=== PATIENT | female | born 1980 ===

== ENCOUNTER → 2018-01-06 21:21 | Outpatient (REF) | payer OTHER, SELFPAY ==
[2018-01-06 21:40] LABS: Hemoglobin 13.4 g/dL (12.0-16.0); Mean Corpuscular HGB Conc 33.4 % (30-36); Mean Corpuscular Volume 92.8 fL (80-100); Platelet Count 323 X10^3/uL (150-400); Red Blood Cell Count 4.31 X10^6/uL (4.0-5.2); Red Cell Distribution Width 14.5 % (11.6-14.8); White Blood Cell Count 9.6 X10^3/uL (4.5-11.0)
[2018-01-06 21:41] LABS: Alanine Aminotransferase 29 IU/L (9-52); Albumin 4.9 g/dL (3.5-5.0); Albumin Globulin Ratio 1.9 (1.0-2.8); Alkaline Phosphatase 47 U/L (38-126); Aspartate Aminotransferase 26 IU/L (14-36); BUN Creatinine Ratio 21.1 (6-22); Bilirubin Total 0.5 mg/dL (0.2-1.3); Blood Urea Nitrogen 19 mg/dL (7-17); Carbon Dioxide 30 mmol/L (22-32); Chloride 96 mmol/L (98-107); Estimated Glomerular Filt Rate > 60.0 mL/min (>60); Globulin 2.6 g/dL (1.7-4.1); Glucose 97 mg/dL (70-100); Magnesium 1.9 mg/dL (1.6-2.3); Potassium 4.7 mmol/L (3.4-5.1); Sodium 140 mmol/L (137-145); Total Protein 7.5 g/dL (6.3-8.2)
[2018-01-06 21:45] LABS: Add Manual Diff / Slide Review YES
[2018-01-06 21:46] LABS: HEMOLYSIS 52 (0-50)
[2018-01-06 22:07] LABS: Neutrophils Absolute Manual 8256 /uL (3000-5900); Total Cells Counted 100
[2018-01-06 22:08] LABS: RBC Morphology Normal Morphology
== END ==
LOC: LAB 21:21
PROVIDERS: Visit Provider Physician Assistant
DX: J45.50 Severe persistent asthma, uncomplicated (principal); Z79.52 Long term (current) use of systemic steroids; R60.1 Generalized edema; R73.03 Prediabetes
CPT/HCPCS: 80053; 83735; 85025

== ENCOUNTER → 2018-01-13 21:23 | Outpatient (REF) | payer OTHER, SELFPAY ==
[2018-01-13 21:35] LABS: Add Manual Diff / Slide Review NO; Basophils Percent Auto 0.5 % (0-2); Eosinophils Percent Auto 0.5 % (2-4); Hematocrit 37.7 % (36-46); Hemoglobin 12.7 g/dL (12.0-16.0); Lymphocytes Percent Auto 13.3 % (25-40); Mean Corpuscular HGB Conc 33.8 % (30-36); Mean Corpuscular Hemoglobin 31.4 PG (26-34); Neutrophils Absolute Auto 7500 /uL (3000-5900); Neutrophils Percent Auto 81.7 % (50-75); Platelet Count 323 X10^3/uL (150-400); Red Blood Cell Count 4.06 X10^6/uL (4.0-5.2); Red Cell Distribution Width 14.1 % (11.6-14.8); White Blood Cell Count 9.2 X10^3/uL (4.5-11.0)
[2018-01-13 21:42] LABS: Alanine Aminotransferase 28 IU/L (9-52); Albumin 4.7 g/dL (3.5-5.0); Alkaline Phosphatase 49 U/L (38-126); Aspartate Aminotransferase 20 IU/L (14-36); BUN Creatinine Ratio 21.1 (6-22); Bilirubin Total 0.3 mg/dL (0.2-1.3); Blood Urea Nitrogen 19 mg/dL (7-17); Calcium 9.9 mg/dL (8.4-10.2); Carbon Dioxide 32 mmol/L (22-32); Chloride 99 mmol/L (98-107); Estimated Glomerular Filt Rate > 60.0 mL/min (>60); Globulin 2.3 g/dL (1.7-4.1); Glucose 87 mg/dL (70-100); HEMOLYSIS < 15 (0-50); Magnesium 1.9 mg/dL (1.6-2.3); Sodium 142 mmol/L (137-145)
[2018-01-13 21:58] LABS: B Type Natriuretic Peptide < 100.0 (<100)
== END ==
LOC: LAB 21:23
PROVIDERS: Visit Provider Physician Assistant
DX: J45.50 Severe persistent asthma, uncomplicated (principal); Z79.52 Long term (current) use of systemic steroids; R60.1 Generalized edema; R73.03 Prediabetes; R07.9 Chest pain, unspecified
CPT/HCPCS: 80053; 83735; 83880; 85025

== ENCOUNTER → 2018-01-25 21:52 | Outpatient (REF) | payer OTHER, SELFPAY ==
[2018-01-25 22:42] LABS: Add Manual Diff / Slide Review NO; Basophils Percent Auto 0.2 % (0-2); Hemoglobin 13.1 g/dL (12.0-16.0); Lymphocytes Percent Auto 5.1 % (25-40); Mean Corpuscular HGB Conc 33.5 % (30-36); Mean Corpuscular Hemoglobin 30.9 PG (26-34); Monocytes Percent Auto 1.6 % (3-14); Neutrophils Absolute Auto 10700 /uL (3000-5900); Neutrophils Percent Auto 93.1 % (50-75); Platelet Count 340 X10^3/uL (150-400); Red Blood Cell Count 4.24 X10^6/uL (4.0-5.2); Red Cell Distribution Width 14.4 % (11.6-14.8); White Blood Cell Count 11.5 X10^3/uL (4.5-11.0)
[2018-01-26 01:38] LABS: Alanine Aminotransferase 29 IU/L (9-52); Albumin 4.7 g/dL (3.5-5.0); Alkaline Phosphatase 45 U/L (38-126); Aspartate Aminotransferase 18 IU/L (14-36); BUN Creatinine Ratio 21.1 (6-22); Bilirubin Total 0.3 mg/dL (0.2-1.3); Blood Urea Nitrogen 19 mg/dL (7-17); Calcium 9.8 mg/dL (8.4-10.2); Carbon Dioxide 29 mmol/L (22-32); Chloride 97 mmol/L (98-107); Estimated Glomerular Filt Rate > 60.0 mL/min (>60); Globulin 2.4 g/dL (1.7-4.1); Glucose 119 mg/dL (70-100); HEMOLYSIS < 15 (0-50); Magnesium 1.9 mg/dL (1.6-2.3); Potassium 4.5 mmol/L (3.4-5.1); Sodium 139 mmol/L (137-145); Total Protein 7.1 g/dL (6.3-8.2)
== END ==
LOC: LAB 21:52
PROVIDERS: Visit Provider Physician Assistant
DX: J45.50 Severe persistent asthma, uncomplicated (principal)
CPT/HCPCS: 80053; 83735; 85025

== ENCOUNTER → 2018-02-03 22:14 | Outpatient (REF) | payer OTHER, SELFPAY ==
[2018-02-03 22:22] LABS: Add Manual Diff / Slide Review NO; Basophils Percent Auto 0.3 % (0-2); Eosinophils Percent Auto 0.2 % (2-4); Hematocrit 41.1 % (36-46); Hemoglobin 13.6 g/dL (12.0-16.0); Lymphocytes Percent Auto 7.4 % (25-40); Mean Corpuscular Hemoglobin 30.7 PG (26-34); Monocytes Percent Auto 2.8 % (3-14); Neutrophils Absolute Auto 10200 /uL (3000-5900); Neutrophils Percent Auto 89.3 % (50-75); Platelet Count 354 X10^3/uL (150-400); Red Blood Cell Count 4.42 X10^6/uL (4.0-5.2); Red Cell Distribution Width 14.4 % (11.6-14.8); White Blood Cell Count 11.4 X10^3/uL (4.5-11.0)
[2018-02-03 22:27] LABS: Alanine Aminotransferase 33 IU/L (9-52); Albumin 4.8 g/dL (3.5-5.0); Albumin Globulin Ratio 2.1 (1.0-2.8); Alkaline Phosphatase 57 U/L (38-126); Aspartate Aminotransferase 22 IU/L (14-36); BUN Creatinine Ratio 22.2 (6-22); Bilirubin Total 0.4 mg/dL (0.2-1.3); Blood Urea Nitrogen 20 mg/dL (7-17); Carbon Dioxide 34 mmol/L (22-32); Chloride 96 mmol/L (98-107); Estimated Glomerular Filt Rate > 60.0 mL/min (>60); Globulin 2.3 g/dL (1.7-4.1); Glucose 88 mg/dL (70-100); HEMOLYSIS < 15 (0-50); Magnesium 1.9 mg/dL (1.6-2.3); Potassium 4.7 mmol/L (3.4-5.1); Sodium 142 mmol/L (137-145); Total Protein 7.1 g/dL (6.3-8.2)
== END ==
LOC: LAB 22:14
PROVIDERS: Visit Provider Physician Assistant
DX: R60.1 Generalized edema (principal); Z79.52 Long term (current) use of systemic steroids
CPT/HCPCS: 80053; 83735; 85025

== ENCOUNTER → 2018-02-27 16:36 | Outpatient (REF) | payer OTHER, SELFPAY ==
[2018-02-27 16:48] LABS: Add Manual Diff / Slide Review NO; Basophils Percent Auto 0.3 % (0-2); Eosinophils Percent Auto 0.4 % (2-4); Hematocrit 39.2 % (36-46); Hemoglobin 13.2 g/dL (12.0-16.0); Lymphocytes Percent Auto 12.7 % (25-40); Mean Corpuscular HGB Conc 33.6 % (30-36); Mean Corpuscular Hemoglobin 30.8 PG (26-34); Mean Corpuscular Volume 91.8 fL (80-100); Monocytes Percent Auto 4.8 % (3-14); Neutrophils Absolute Auto 7400 /uL (1500-7000); Neutrophils Percent Auto 81.8 % (50-75); Platelet Count 340 X10^3/uL (150-400); Red Blood Cell Count 4.27 X10^6/uL (4.0-5.2); Red Cell Distribution Width 14.4 % (11.6-14.8); White Blood Cell Count 9.1 X10^3/uL (4.5-11.0)
[2018-02-27 17:13] LABS: Alanine Aminotransferase 30 IU/L (9-52); Albumin 4.4 g/dL (3.5-5.0); Albumin Globulin Ratio 1.9 (1.0-2.8); Alkaline Phosphatase 42 U/L (38-126); Aspartate Aminotransferase 20 IU/L (14-36); Bilirubin Total 0.4 mg/dL (0.2-1.3); Blood Urea Nitrogen 20 mg/dL (7-17); Calcium 9.7 mg/dL (8.4-10.2); Carbon Dioxide 34 mmol/L (22-32); Chloride 99 mmol/L (98-107); Estimated Glomerular Filt Rate > 60.0 mL/min (>60); Globulin 2.3 g/dL (1.7-4.1); Glucose 104 mg/dL (70-100); HEMOLYSIS < 15 (0-50); Magnesium 1.9 mg/dL (1.6-2.3); Potassium 4.1 mmol/L (3.4-5.1); Sodium 141 mmol/L (137-145); Total Protein 6.7 g/dL (6.3-8.2)
== END ==
LOC: LAB 16:36
PROVIDERS: Visit Provider Physician Assistant
DX: R60.1 Generalized edema (principal); J45.50 Severe persistent asthma, uncomplicated; Z79.52 Long term (current) use of systemic steroids
CPT/HCPCS: 36415; 80053; 83735; 85025

== ENCOUNTER → 2018-03-21 23:28 | Outpatient (REF) | payer OTHER, SELFPAY ==
[2018-03-22 00:07] LABS: Alanine Aminotransferase 41 IU/L (9-52); Albumin 4.7 g/dL (3.5-5.0); Alkaline Phosphatase 50 U/L (38-126); Aspartate Aminotransferase 28 IU/L (14-36); Bilirubin Total 0.2 mg/dL (0.2-1.3); Blood Urea Nitrogen 19 mg/dL (7-17); Calcium 10.1 mg/dL (8.4-10.2); Carbon Dioxide 34 mmol/L (22-32); Chloride 93 mmol/L (98-107); Estimated Glomerular Filt Rate > 60.0 mL/min (>60); Globulin 2.3 g/dL (1.7-4.1); Glucose 78 mg/dL (70-100); HEMOLYSIS < 15 (0-50); Magnesium 1.8 mg/dL (1.6-2.3); Potassium 3.9 mmol/L (3.4-5.1); Sodium 138 mmol/L (137-145)
[2018-03-22 00:26] LABS: Add Manual Diff / Slide Review NO; Basophils Absolute Auto 0 /uL (0-100); Basophils Percent Auto 0.6 % (0-2); Eosinophils Absolute Auto 0 /uL (0-450); Eosinophils Percent Auto 0.6 % (2-4); Hematocrit 37.8 % (36-46); Hemoglobin 12.6 g/dL (12.0-16.0); Lymphocytes Absolute Auto 1800 /uL (1100-4500); Lymphocytes Percent Auto 23.5 % (25-40); Mean Corpuscular HGB Conc 33.3 % (30-36); Mean Corpuscular Hemoglobin 30.5 PG (26-34); Mean Corpuscular Volume 91.8 fL (80-100); Monocytes Absolute Auto 600 /uL (0-900); Monocytes Percent Auto 7.8 % (3-14); Neutrophils Absolute Auto 5100 /uL (1500-7000); Neutrophils Percent Auto 67.5 % (50-75); Platelet Count 306 X10^3/uL (150-400); Red Blood Cell Count 4.12 X10^6/uL (4.0-5.2); Red Cell Distribution Width 14.4 % (11.6-14.8); White Blood Cell Count 7.6 X10^3/uL (4.5-11.0)
== END ==
LOC: LAB 23:28
PROVIDERS: Visit Provider Physician Assistant
DX: J45.50 Severe persistent asthma, uncomplicated (principal); Z79.52 Long term (current) use of systemic steroids; R60.1 Generalized edema
CPT/HCPCS: 36415; 80053; 83735; 85025

== ENCOUNTER → 2018-03-30 23:16 | Outpatient (REF) | payer OTHER, SELFPAY ==
[2018-03-31 02:38] LABS: Add Manual Diff / Slide Review NO; Basophils Absolute Auto 0 /uL (0-100); Basophils Percent Auto 0.4 % (0-2); Eosinophils Absolute Auto 0 /uL (0-450); Eosinophils Percent Auto 0.2 % (2-4); Hematocrit 37.3 % (36-46); Hemoglobin 12.8 g/dL (12.0-16.0); Lymphocytes Absolute Auto 1500 /uL (1100-4500); Lymphocytes Percent Auto 16.4 % (25-40); Mean Corpuscular HGB Conc 34.4 % (30-36); Monocytes Absolute Auto 500 /uL (0-900); Monocytes Percent Auto 5.3 % (3-14); Neutrophils Absolute Auto 7100 /uL (1500-7000); Neutrophils Percent Auto 77.7 % (50-75); Platelet Count 374 X10^3/uL (150-400); Red Blood Cell Count 4.14 X10^6/uL (4.0-5.2); Red Cell Distribution Width 14.5 % (11.6-14.8); White Blood Cell Count 9.2 X10^3/uL (4.5-11.0)
[2018-03-31 03:04] LABS: Alanine Aminotransferase 32 IU/L (9-52); Albumin 4.8 g/dL (3.5-5.0); Albumin Globulin Ratio 2.1 (1.0-2.8); Alkaline Phosphatase 52 U/L (38-126); Aspartate Aminotransferase 25 IU/L (14-36); BUN Creatinine Ratio 14.4 (6-22); Bilirubin Total 0.2 mg/dL (0.2-1.3); Blood Urea Nitrogen 13 mg/dL (7-17); Calcium 9.5 mg/dL (8.4-10.2); Carbon Dioxide 31 mmol/L (22-32); Chloride 98 mmol/L (98-107); Estimated Glomerular Filt Rate > 60.0 mL/min (>60); Globulin 2.3 g/dL (1.7-4.1); Glucose 97 mg/dL (70-100); HEMOLYSIS < 15 (0-50); Magnesium 1.8 mg/dL (1.6-2.3); Potassium 3.3 mmol/L (3.4-5.1); Sodium 140 mmol/L (137-145); Total Protein 7.1 g/dL (6.3-8.2)
== END ==
LOC: LAB 23:16
PROVIDERS: Visit Provider Physician Assistant
DX: J45.50 Severe persistent asthma, uncomplicated (principal); R60.1 Generalized edema; Z79.52 Long term (current) use of systemic steroids
CPT/HCPCS: 36415; 80053; 83735; 85025

== ENCOUNTER → 2018-04-19 21:06 | Outpatient (REF) | payer OTHER, SELFPAY | LOC: LAB 21:06 | PROVIDERS: Visit Provider Family Medicine | DX: J45.50 Severe persistent asthma, uncomplicated (principal); R60.1 Generalized edema; N39.0 Urinary tract infection, site not specified | CPT/HCPCS: 87086 ==

== ENCOUNTER → 2018-05-04 21:29 | Outpatient (REF) | payer OTHER, SELFPAY ==
[2018-05-04 21:56] LABS: Add Manual Diff / Slide Review NO; Basophils Absolute Auto 100 /uL (0-100); Basophils Percent Auto 0.7 % (0-2); Eosinophils Absolute Auto 0 /uL (0-450); Eosinophils Percent Auto 0.3 % (2-4); Hematocrit 35.1 % (36-46); Hemoglobin 11.8 g/dL (12.0-16.0); Lymphocytes Absolute Auto 1200 /uL (1100-4500); Lymphocytes Percent Auto 15.6 % (25-40); Mean Corpuscular HGB Conc 33.6 % (30-36); Mean Corpuscular Hemoglobin 30.6 PG (26-34); Mean Corpuscular Volume 91.2 fL (80-100); Monocytes Absolute Auto 700 /uL (0-900); Monocytes Percent Auto 9.7 % (3-14); Neutrophils Absolute Auto 5500 /uL (1500-7000); Neutrophils Percent Auto 73.7 % (50-75); Platelet Count 298 X10^3/uL (150-400); Red Blood Cell Count 3.85 X10^6/uL (4.0-5.2); Red Cell Distribution Width 13.8 % (11.6-14.8); White Blood Cell Count 7.5 X10^3/uL (4.5-11.0)
[2018-05-04 22:09] LABS: Alanine Aminotransferase 28 IU/L (9-52); Albumin 4.3 g/dL (3.5-5.0); Albumin Globulin Ratio 1.9 (1.0-2.8); Alkaline Phosphatase 52 U/L (38-126); Aspartate Aminotransferase 25 IU/L (14-36); BUN Creatinine Ratio 16.3 (6-22); Bilirubin Total 0.2 mg/dL (0.2-1.3); Blood Urea Nitrogen 13 mg/dL (7-17); Calcium 9.4 mg/dL (8.4-10.2); Carbon Dioxide 27 mmol/L (22-32); Chloride 101 mmol/L (98-107); Estimated Glomerular Filt Rate > 60.0 mL/min (>60); Globulin 2.3 g/dL (1.7-4.1); Glucose 85 mg/dL (70-100); HEMOLYSIS < 15 (0-50); Potassium 3.9 mmol/L (3.4-5.1); Sodium 139 mmol/L (137-145); Total Protein 6.6 g/dL (6.3-8.2)
== END ==
LOC: LAB 21:29
PROVIDERS: Visit Provider Family Medicine
DX: E87.6 Hypokalemia (principal); R60.1 Generalized edema; R06.02 Shortness of breath; R53.83 Other fatigue
CPT/HCPCS: 36415; 80053; 85025

== ENCOUNTER → 2018-06-23 21:27 | Outpatient (REF) | payer OTHER, SELFPAY ==
[2018-06-23 22:42] LABS: Alanine Aminotransferase 17 IU/L (9-52); Albumin 4.5 g/dL (3.5-5.0); Albumin Globulin Ratio 1.9 (1.0-2.8); Alkaline Phosphatase 58 U/L (38-126); Aspartate Aminotransferase 20 IU/L (14-36); BUN Creatinine Ratio 17.8 (6-22); Bilirubin Total 0.3 mg/dL (0.2-1.3); Blood Urea Nitrogen 16 mg/dL (7-17); Calcium 9.7 mg/dL (8.4-10.2); Carbon Dioxide 26 mmol/L (22-32); Chloride 102 mmol/L (98-107); Estimated Glomerular Filt Rate > 60.0 mL/min (>60); Globulin 2.4 g/dL (1.7-4.1); Glucose 77 mg/dL (70-100); HEMOLYSIS < 15 (0-50); Potassium 4.4 mmol/L (3.4-5.1); Sodium 141 mmol/L (137-145); Total Protein 6.9 g/dL (6.3-8.2)
[2018-06-23 22:52] LABS: Add Manual Diff / Slide Review NO; Basophils Absolute Auto 0 /uL (0-100); Basophils Percent Auto 0.3 % (0-2); Eosinophils Absolute Auto 100 /uL (0-450); Eosinophils Percent Auto 0.9 % (2-4); Hematocrit 37.5 % (36-46); Hemoglobin 12.6 g/dL (12.0-16.0); Lymphocytes Absolute Auto 1500 /uL (1100-4500); Lymphocytes Percent Auto 18.9 % (25-40); Mean Corpuscular HGB Conc 33.6 % (30-36); Mean Corpuscular Volume 89.3 fL (80-100); Monocytes Absolute Auto 600 /uL (0-900); Monocytes Percent Auto 7.2 % (3-14); Neutrophils Absolute Auto 5600 /uL (1500-7000); Neutrophils Percent Auto 72.7 % (50-75); Platelet Count 342 X10^3/uL (150-400); Red Cell Distribution Width 13.7 % (11.6-14.8); White Blood Cell Count 7.7 X10^3/uL (4.5-11.0)
[2018-06-23 23:01] LABS: Free T4, Direct Thyroxine 0.79 ng/dL (0.78-2.19)
[2018-06-23 23:15] LABS: Ferritin 13.6 ng/mL (6.27-137); Thyroid Stimulating Hormone 0.58 uIU/mL (0.47-4.68)
[2018-06-27 15:33] LABS: Anti Thyroglobulin Antibody < 1 IU/mL (< 2); Thyroid Peroxidase Antibodies < 1 IU/mL (< 9)
== END ==
LOC: LAB 21:27
PROVIDERS: Visit Provider Family Medicine
DX: E87.6 Hypokalemia (principal); R06.02 Shortness of breath; R53.83 Other fatigue; R60.1 Generalized edema
CPT/HCPCS: 36415; 80053; 82728; 84439; 84443; 85025; 86376; 86800

== ENCOUNTER → 2018-07-26 20:27 | Outpatient (ROUT) | payer OTHER, SELFPAY ==
[2018-07-26 21:25] LABS: Rubella Antibody IgG 87.2 IU/mL (>15)
== END ==
PROVIDERS: Visit Provider Family Medicine
DX: Z01.84 Encounter for antibody response examination (principal)
CPT/HCPCS: 36415; 86735; 86762; 86765